=== PATIENT | female | born 1965 | race Hispanic/Latino ===

== ENCOUNTER 2017-09-24 07:48 | Day surgery (SDC) | payer OTHER ==
[2017-09-22 15:43] VITALS: BP 121/74
[2017-09-22 16:35] LABS: HEMATOCRIT 37.4 % (36-48); MEAN CORPUSCULAR HEMOGLOBIN 30.4 pg (27.0-33.0); MEAN CORPUSCULAR HGB CONC 34.3 g/dL (32.0-36.0); MEAN CORPUSCULAR VOLUME 88.5 fL (79-99); PLATELET COUNT (AUTO) 255 K/uL (130-400); RED BLOOD CELL COUNT(AUTO) 4.23 MIL/uL (4.00-5.50); RED CELL DISTRIBUTION WIDTH 13.2 % (11.0-15.5); WHITE BLOOD COUNT (AUTO) 7.4 K/uL (4.8-10.8)
[2017-09-24] VITALS (14 sets, daily range): BP systolic 109–141; BP diastolic 70–92
[~2017-09-24] VITALS: Ht 163.8 cm; Wt 53.5 kg
[~2017-09-24 07:48] MED LIST: ATEN25TA PO; DOCU100C33 PO; FAMO40TA7 PO; LEVO75TA10 PO; LORA1TAB3 PO
[2017-09-24] MEDS ORDERED: LACTATED RINGERS 1000ML 1,000 ML IV ONE (08:30)
[2017-09-24] MEDS: CEFAZOLIN SODIUM 1 GM VIAL IVP ONE ×2 (08:52→11:29)
[2017-09-24] MEDS ORDERED: ISOVUE-370 50ML VIAL IV ONE (10:14)
[2017-09-24] MEDS ORDERED: MIDAZOLAM HCL 1 MG/ML 2ML VIAL ONE (11:18)
[2017-09-24] MEDS ORDERED: GLYCOPYRROLATE 0.2 MG/ML 5 ML VIAL ONE ×2 (11:18→11:34)
[2017-09-24] MEDS ORDERED: FENTANYL CITRATE PF 50 MCG/1 ML 2ML VIAL ONE (11:18)
[2017-09-24] MEDS ORDERED: LIDOCAINE PF 2% 5ML ABBOJECT ONE (11:18)
[2017-09-24] MEDS ORDERED: PROPOFOL 10 MG/ML 20ML VIAL IV ONE (11:18)
[2017-09-24] MEDS ORDERED: DEXAMETHASONE SOD PHOSPHATE 10MG/ML 1ML VIAL ONE (11:18)
[2017-09-24] MEDS ORDERED: ROCURONIUM BROMIDE 10MG/1ML 5ML VL ONE (11:32)
[2017-09-24] MEDS ORDERED: NEOSTIGMINE 5MG/5ML SYR IV ONE (11:34)
[2017-09-24] MEDS ORDERED: PHENAZOPYRIDINE HCL 200 MG TABLET ONE (12:41)
[2017-09-24] MEDS ORDERED: PHEN-934 PO (13:41)
== END 2017-09-24 14:32 | disposition home or self-care (01) ==
LOC: DAH 07:48
PROVIDERS: ATTEND Urology
DX: N13.0 Hydronephrosis with ureteropelvic junction obstruction (principal); I10 Essential (primary) hypertension; K21.9 Gastro-esophageal reflux disease without esophagitis; E03.9 Hypothyroidism, unspecified; Z98.890 Other specified postprocedural states; Z79.899 Other long term (current) drug therapy
CPT/HCPCS: 36415; 74420; 85027; A4218; A4344; A4354; C1758; C1769; C2617; J0690; J1100; J2001; J2250; J2704; J2710; J3010; J3490; J7030; J7120; Q9967